=== PATIENT | male | born 1995 | race American Indian/Alaskan Native ===

== ENCOUNTER 2017-10-03 01:51 | Inpatient (IN) | payer MEDICAID, OTHER ==
--- NOTE | 2017-10-03 02:33 | C.PDOC ---
History Of Present Illness 21 year old male is brought to the ED via EMS for evaluation of possible SI. Patient reports he was out all day long and was nit jailene to call his parents because his phone had no battery. Patient states he was watching Star Wars in the movies theater, patient reports his family think he is going to commit suicide so they called an ambulance for him. Patient is willing to spend the night over for observation. Time Seen by Provider: 10/03/17 02:29 Chief Complaint (Nursing): Psychiatric Evaluation History Per: Patient, EMS History/Exam Limitations: no limitations Onset/Duration Of Symptoms: Hrs Current Symptoms Are (Timing): Still Present Suicide/Self Injury Attempted (Context): None Modifying Factor(s): None Severity: None Associated Symptoms: denies: Depression, Suicidal Thoughts, Suicidal Plan Recent travel outside of the [place]: No Additional History Per: Patient Past Medical History Reviewed: Historical Data, Nursing Documentation, Vital Signs Vital Signs: Last Vital Signs Temp 98.4 F 10/03/17 06:33 Pulse 89 10/03/17 15:39 Resp 20 10/03/17 06:33 BP 105/76 10/03/17 15:39 Pulse Ox 100 10/03/17 06:33 - Medical History PMH: Depression Surgical History: No Surg Hx Family History: States: Unknown Family Hx - Social History Hx Alcohol Use: No Hx Substance Use: No Review Of Systems Constitutional: Negative for: Fever, Chills ENT: Negative for: Ear Pain Cardiovascular: Negative for: Chest Pain, Palpitations Respiratory: Negative for: Cough, Shortness of Breath, SOB with Excertion, Pleuritic Pain Gastrointestinal: Negative for: Nausea, Vomiting, Abdominal Pain Genitourinary: Negative for: Dysuria, Hematuria Musculoskeletal: Negative for: Neck Pain Skin: Negative for: Rash Neurological: Negative for: Weakness, Numbness Psych: Negative for: Depression, Suicidal ideation Physical Exam - Physical Exam Appears: Non-toxic, No Acute Distress Skin: Normal Color, Warm, Dry Head: Atraumatic, Normacephalic Eye(s): bilateral: Normal Inspection Ear(s): Bilateral: Normal Nose: No Discharge, No Deformity Oral Mucosa: Moist Neck: Normal ROM, Supple Chest: Symmetrical Cardiovascular: Rhythm Regular, No Murmur Respiratory: Normal Breath Sounds, No Rales, No Rhonchi, No Wheezing Gastrointestinal/Abdominal: Soft, No Tenderness, No Guarding, No Rebound Back: Normal Inspection Extremity: Normal ROM, No Pedal Edema, No Calf Tenderness, No Deformity, No Swelling Neurological/Psych: Oriented x3, Normal Speech, Normal Cognition Gait: Steady ED Course And Treatment - Laboratory Results Result Diagrams: 10/03/17 03:55 10/03/17 03:55 O2 Sat by Pulse Oximetry: 100 (On RA) Pulse Ox Interpretation: Normal Medical Decision Making Medical Decision Making: Plan: * labs * 1:1 obs * UA Patient will be admitted to psych in patient unit. Disposition Counseled Patient/Family Regarding: Diagnosis - Disposition Disposition: HOSPITALIZED Disposition Time: 02:22 Condition: GOOD - Clinical Impression Clinical Impression: Schizophrenia - Scribe Statement The provider has reviewed the documentation as recorded by the Scribe Delon Dowling All medical record entries made by the Ubaldoibe were at my direction and personally dictated by me. I have reviewed the chart and agree that the record accurately reflects my personal performance of the history, physical exam, medical decision making, and the department course for this patient. I have also personally directed, reviewed, and agree with the discharge instructions and disposition.
[2017-10-03 03:52] LABS: SQUAMOUS EPITHIAL < 1 /hpf (0-5); URINE BILIRUBIN NEGATIVE (NEGATIVE); URINE BLOOD NEGATIVE (NEGATIVE); URINE CLARITY Clear (Clear); URINE COLOR Yellow (YELLOW); URINE GLUCOSE (UA) NORMAL (Normal); URINE LEUKOCYTE ESTERASE NEG Leu/uL (Negative); URINE NITRATE NEGATIVE (NEGATIVE); URINE PROTEIN NEGATIVE (NEGATIVE); URINE UROBILINOGEN NORMAL mg/dL (0.2-1.0)
[2017-10-03 03:58] LABS: BASO % 0.7 % (0.0-2.0); EOS # 0.1 K/uL (0.0-0.7); EOS % 1.7 % (0.0-4.0); LYMPH # 1.6 K/uL (1.0-4.3); LYMPH % 28.3 % (20.0-40.0); MEAN CELL VOLUME 87.3 fL (80.0-94.0); MEAN CORPUSCULAR HEMOGLOBIN 30.5 pg (27.0-31.0); MEAN CORPUSCULAR HGB CONC 34.9 g/dL (33.0-37.0); MEAN PLATELET VOLUME 8.2 fL (7.2-11.7); MONO # 0.5 K/uL (0.0-0.8); MONO % 8.8 % (0.0-10.0); NEUT # 3.4 K/uL (1.8-7.0); NEUT % 60.5 % (50.0-75.0); RBC 4.58 Mil/uL (4.40-5.90); RED CELL DISTRIBUTION WIDTH 17.2 % (11.5-14.5); WHITE BLOOD COUNT 5.5 K/uL (4.8-10.8)
[2017-10-03 04:10] LABS: ALBUMIN 4.8 g/dL (3.5-5.0); ALT/SGPT 16 U/L (21-72); AST/SGOT 16 U/L (17-59); BLOOD UREA NITROGEN 9 mg/dL (9-20); CALCIUM 8.6 mg/dl (8.6-10.4); GFR AFRICAN-AMERICAN > 60; GFR NON-AFRICAN AMERICAN > 60
[2017-10-03 04:18] LABS: ALB/GLOB RATIO 1.2 (1.0-2.1)
--- NOTE | 2017-10-03 06:04 | PCM.BM ---
<FlyVerna jacobs - Last Filed: 10/03/17 06:03> Treatment Plan Problems - Problems identified on initial assessmt Suicidal Ideation Date Initiated: 10/03/17 Time Initiated: 05:55 Assessment reference: NA Status: Active Depression Date Initiated: 10/03/17 Time Initiated: 05:55 Assessment reference: NA Status: Active Treatment assets and liabiliti Patient Assests: cooperative, ADL independent, negotiates basic needs Patient Liabilities: relationship conflicts - Milieu Protocol Maintain good personal hygiene: daily Encourage regular showers, daily Remind patient to perform daily oral care, daily Assist patient to perform ADL's Conduct patient checks and document Observation sheet: Q15 minutes Maintain personal safety: every shift Educate patient to report safety concerns to staff, every shift Monitor environment for contraband/sharps Medication safety: Monitor for expected outcome, potential side effects: every shift, Assess barriers to learning: every shift, Assess readiness for medication education: every shift <Shayla Vo - Last Filed: 10/04/17 11:25> Family Contact Family involvement: Family/SO is involved Family contact: Patient declines to allow family contact at present - Goals for Treatment Patient goals for treatment: "I don't know." Discharge/Continuing Care - Education Needs Education Needs: Patient Medication, Patient Coping Skills - Discharge Discharge Criteria: Tolerates medication w/o severe side effects, Free of Suicidal thoughts, Reduction of target symptoms Discharge to:: Home - Treatment Team Participation Discussed with Family/SO: No Was Patient/Family/SO present at Treatment Team Meeting: Yes <Jose G Bernstein - Last Filed: 10/04/17 11:27> - Diagnosis (1) Bipolar disorder, curr episode mixed, severe, with psychotic features Status: Acute Interventions: 10/04/17 11:27 * Assess/adjust medications daily and /or as needed * See patient on an individual basis 7x/week to assess level of manic behaviors and stability * Discuss risks, benefits, side effects and alternatives of medications *
[2017-10-03 06:11] LABS: BENZODIAZEPINES, UR NEGATIVE (NEGATIVE); OPIATES, UR NEGATIVE (NEGATIVE); PHENCYCLIDINE, UR NEGATIVE (NEGATIVE)
[2017-10-03 06:56] LABS: BARBITURATES, UR NEGATIVE (NEGATIVE)
--- NOTE | 2017-10-03 12:07 | PCM.PSYCH ---
Initial Psychiatric Evaluation - Initial Psychiatric Evaluation Type of Admission: Voluntary Chief Complaint (in patient's own words): I was suicidal History of Present Illness and Precipitating Events: Patient is a 21 year old AA male who was BIB [facility] for possible suicide threat. He spoke with his brother over the phone and told him that he wanted to kill himself. Following the conversation the brother called the spool fixer and notified the patient's grandmother. Patient states that he truly did not mean it "and killing himself would be stupid." However in the ED he reported his thoughts of suicide as something that is "usually present in my mind"; Approximately 2yrs ago, Pt had idx to either "stab" himself in the head, "jump from a high building", or "walk around a dark ally, waiting for someone to kill me"; Pt, however, denied having any recent suicide plans/intent; Pt described himself as being "depressed", "empty", "just like a walking shell", and as a "nihilist"; Pt stated: "I worry too much about the future;" The future kind of scares me;" I just don't think life's that important;" I just feel empty inside; " Pt also reports a hx of secluding himself from others; Pt stated: "I've been isolating myself since I was a kid;" It's soothing to me;" I don't like people; " I think people are annoying". He stated that his anxiety causes his mind to go blank "like static on a TV screen" causing him to have difficulty concentrating or focusing. Patient reports at times feelings of hopelessness and helplessness. He states that he feels empty inside, that he has no drive or motivation, and as if no one is listening to him. Patient denies auditory/visual hallucination, history of sexual/mental/physical abuse, palpitations, paranoia. He admits to a passion for video games. It is not uncommon, he states, to "pull all nighters" or not sleep for 4 days because he is playing video games. Patient moved out of his parents home and lives with his grandmother because she was closer to his college. 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 He says ever since then he is extremely stressed when any of his family members mention college to him. He states that he suffers from severe anxiety since dropping out worrying about the future, his career, and how to make money quickly. He describes his anxiety like a feeling of claustrophobia, that he is trapped and wants to escape. PMH: Denies Allergies: NKDA Social: Lives with grandmother. Has communication with brother, mother, and father. Denies alcohol, drugs, tobacco. Current Medications: Active Medications Generic Name Dose Route Start Last Admin Trade Name Freq PRN Reason Stop Dose Admin Pneumococcal Polyvalent Vaccine 0.5 ml 10/06/17 10:00 Pneumovax 23 Vaccine IM 10/06/17 10:01 .ONCE ONE Past Psychiatric History - Past Psychiatric History Previous Treatment History: None Pertinent Medical Hx (Current Medical&Sleep Prob, Allergies): Allergies Allergy/AdvReac Type Severity Reaction Status Date / Time No Known Allergies Allergy Verified 10/03/17 02:11 No Known Home Med 10/03/17 Review of Systems - Review of Systems All systems: reviewed and no additional remarkable complaints except - Psychiatric Psychiatric: Abnormal Sleep Pattern, Anxiety, Depression, Difficulty Concentrating, Hopelessness, Suicidal Ideation Mental Status Examination - Personal Presentation Personal Presentation: Looks stated age - Affect Affect: Constricted, Depressed - Motor Activity Motor Activity: Calm - Reliability in Providing Information Reliability in Providing Information: Poor, due to altered mood - Speech Speech: Tangential - Mood Mood: Depressed, Anxious - Formal Thought Process Formal Thought Process: No Impairment - Obsessions/Compulsions Obsessions: No Compulsions: No - Cognitive Functions Orientation: Person, Place, Situation, Time Sensorium: Alert Attention/Concentration: Attentive Abstract Thinking: [place] Estimate of Intelligence: Below average Judgement: Imparied, as evidence by: Poor judgement, Imparied, as evidence by: Lack of insight into illness - Risk Risk: Suicidal, Diminished functioning - Strength & Assets Inventory Strength & Assets Inventory: Family support DSM 5 DX - DSM 5 DSM 5 Diagnosis: Bipolar disorder mixed severe without psychotic features - Recommended/Plan of Treatment Treatment Recommendations and Plan of Treatment: Bipolar disorder mixed severe without psychotic features CBT Psychoeducation Supportive therapy, group therapy, individual therapy Lithouj 300 mg po tid Trazodone 50 mg by mouth daily at bedtime - Smoking Cessation Smoking Cessation Initiated: No
[2017-10-04 06:14] VITALS: TEMP 97.8
--- NOTE | 2017-10-04 11:26 | PCM.PYCHPN ---
Psychiatric Progress Note - Psychiatric Progress Note Patient seen today, length of contact: 15 min Patient Chief Complaint: I am feeling little better.' Problems Identified/Issues Discussed: Patient seen and evaluated, chart reviewed and discussed with the nurse. Patient appears more organized and less internally preoccupied. Patient still appears paranoid and delusional. Patient reports improvement in his mood and irritability and reports some improvement in the feelings of hopelessness and helplessness. Patient remained isolated, confined and withdrawn. Patient is compliant with medications and denies any side effects. Symptoms are improving but need more time to stabilize. Support and psychoeducation given. Medication Change: Yes (start risperdal) Medical Record Reviewed: Yes Mental Status Examination - Cognitive Function Orientation: Person, Place, Situation, Time Memory: Intact Attention: WNL Concentration: Poor Association: Loose Fund of Knowledge: WNL - Mood Mood: Depressed, Anxious - Affect Affect: Constricted, Depressed - Speech Speech: Appropriate - Formal Thought Process Formal Thought Process: Paranoia, Loosening of associations, Flight of ideas - Suicidal Ideation Suicidal Ideation: No - Homicidal Ideation Homicidal Ideation: No Goal/Treatment Plan - Goal/Treatment Plan Need for Continued Stay: Remain at risks for inpatient hospitalization, Severe functional impairment Progress Toward Problem(s) and Goals/Treatment Plan: Bipolar disorder mixed severe without psychotic features CBT Psychoeducation Supportive therapy, group therapy, individual therapy Lithouj 300 mg po tid Trazodone 50 mg by mouth daily at bedtime Risprerdal 1 mg PO BID Cogentin 1 mg PO BID
[2017-10-05 06:08] VITALS: O2SAT 98
[2017-10-05 13:49] VITALS: RESP 19
--- NOTE | 2017-10-05 15:46 | PCM.PYCHDC ---
Mental Status Examination - Mental Status Examination Orientation: Person, Place, Situation, Time Discharge Summary - Discharge Note Consultations:: List each consultation separately and include: 1. Reason for request. 2. Findings. 3. Follow-up Summary of Hospital Course include:: 1. Description of specific treatment plan utilized for patients during their course of treatmen. 2. Summarize the time- course for resolution of acute symptoms and/or regressed behaviors. 3. Describe issues identified and worked on during hospitalization. 4. Describe medication utilized. 5. Describe medical problems identified and treated. 6. Reassessment of suicide risk - Final Diagnosis (DSM 5) Condition upon Discharge: GOOD Disposition: AGAINST MEDICAL ADVICE
[2017-10-05 15:50] VITALS: BP 142/77; PULSE 110
--- NOTE | 2017-10-05 16:09 | PCM.PYCHDC ---
Mental Status Examination - Mental Status Examination Orientation: Person, Place, Situation, Time Memory: Intact Mood: Neutral Affect: Constricted Speech: Appropriate, Soft Attention: WNL Concentration: WNL Association: WNL Fund of Knowledge: WNL Formal Thought Process: No Impairment Description of patient's judgement and insight: insight was good and judgment was fair Psychotic Thoughts and Behaviors: denied Suicidal Ideation: No Current Homicidal Ideation?: No Plan: denied Discharge Summary - Discharge Note Reason for Hospitalization: Patient is a 21 year old AA male who was BIB [facility] for possible suicide threat. He spoke with his brother over the phone and told him that he wanted to kill himself. Following the conversation the brother called the tanker serviceman and notified the patient's grandmother. Patient states that he truly did not mean it "and killing himself would be stupid." However in the ED he reported his thoughts of suicide as something that is "usually present in my mind"; Approximately 2yrs ago, Pt had idx to either "stab" himself in the head, "jump from a high building", or "walk around a dark ally, waiting for someone to kill me"; Pt, however, denied having any recent suicide plans/intent; Pt described himself as being "depressed", "empty", "just like a walking shell", and as a "nihilist"; Pt stated: "I worry too much about the future;" The future kind of scares me;" I just don't think life's that important;" I just feel empty inside; " Pt also reports a hx of secluding himself from others; Pt stated: "I've been isolating myself since I was a kid;" It's soothing to me;" I don't like people; " I think people are annoying". He stated that his anxiety causes his mind to go blank "like static on a TV screen" causing him to have difficulty concentrating or focusing. Patient reports at times feelings of hopelessness and helplessness. He states that he feels empty inside, that he has no drive or motivation, and as if no one is listening to him. Patient denies auditory/visual hallucination, history of sexual/mental/physical abuse, palpitations, paranoia. He admits to a passion for video games. It is not uncommon, he states, to "pull all nighters" or not sleep for 4 days because he is playing video games. Patient moved out of his parents home and lives with his grandmother because she was closer to his college. He was attending [employer] as a [place] major but dropped out. 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 He says ever since then he is extremely stressed when any of his family members mention college to him. He states that he suffers from severe anxiety since dropping out worrying about the future, his career, and how to make money quickly. He describes his anxiety like a feeling of claustrophobia, that he is trapped and wants to escape. PMH: Denies Allergies: NKDA Social: Lives with grandmother. Has communication with brother, mother, and father. Denies alcohol, drugs, tobacco. Consultations:: List each consultation separately and include: 1. Reason for request. 2. Findings. 3. Follow-up Summary of Hospital Course include:: 1. Description of specific treatment plan utilized for patients during their course of treatmen. 2. Summarize the time- course for resolution of acute symptoms and/or regressed behaviors. 3. Describe issues identified and worked on during hospitalization. 4. Describe medication utilized. 5. Describe medical problems identified and treated. 6. Reassessment of suicide risk Summary of Hospital Course: The pt was admitted and started on treatment with psychotherapy, support, psychoeducation and medications. MT and CBT techniques were used. The pt was partially compliant with his treatment. The pt attended some groups and activities, as well as milieu therapy. All the risks and benefits of medications were discussed and the patient understood and agreed. The pt improved with the treatment. patient signed a 48-hour sign out noticed and submitted on after coming to the unit. Patient had had no behavioral issues in the unit. Patient denied any suicidal or homicidal ideation, intent or plan. Patient stated that he had never attempted suicide in the past. He reported that he cannot hurt himself because he is scared and has a phobia of pain. Patient denied any past suicidal gestures in the past. Patient stated that his family exaggerated the situation. This M.D. contacted patient's father name Herb [phone]. patient's father reported that the child never attempted suicide in the past. Patient's father stated that he has no safety concerns regarding his son. There is M.D. also speak with the aunt Donis [phone] with the patient permission. Aunt reported that the patient is never attempted suicide, and the family was over reacted and exaggerated the story. The aunt stated that the patient never verbalized suicidal or homicidal ideation intent or plan in front of her. She stated he never attempted suicide in the past.. He has no safety concerns regarding the child. This M.Collette. also contacted the grandmother, but unable to talk with grandmother. Pt appreciate the treatment and care which was provided to him. patient stated that he does not think that he needed any medications. No medication prescription was given to the patient. He stated that he wanted and interested in individual therapy and want to continue after that discharge referral and contact number of [facility] and [facility] was provided to the patient. At the time of d/c pt denied any depressive symptoms, manic symptoms. He denied any SI, HI, intent or plan. Pt denied any perceptual disturbances. He had behavioral issues. Psychoeducation was provided to the pt to be compliant with the medication, treatment plan and f/u plan after the discharge. After care discussed with the patient. patient was discharged to the aunt. - Final Diagnosis (DSM 5) Condition upon Discharge: GOOD DSM 5: BiPOLAR DISORDER CURRENT EPISODE MIXED Disposition: HOME/ ROUTINE Follow-up Treatment Plan: Follow after care plan as discussed. Contact information for [facility] and Doris provided to start therapy. Pt will make an appointment by himself. No medication was given as pt does not believe that he had any mental illness. Use relapse prevention copying skills Return to ER or call 911 if suicidal, homicidal or symptoms relapse. Stay away from stress, alcohol and drugs. See primary doctor once a year. Time Spend 25 minutes - Smoking Cessation Smoking Cessation Medication prescribed: Yes - Antipsychotic Medications Pt discharged on 2 or more routine antipsychotic medications: No
[2017-10-06] MEDS ORDERED: Influenza Vaccine 60 mcg/0.5 mL SYR (4YR UP) IM ONE (10:00)
[2017-10-06] MEDS ORDERED: Pneumococcal 23-Valent Vaccine IM ONE (10:00)
== END 2017-10-05 17:15 | disposition home or self-care (01) | DRG 430 ==
LOC: C.ER 01:51 → C.5E 03:39 → UNDODISIN 10-05 17:15
PROC: GZ56ZZZ Individual Psychotherapy, Supportive (ICD-10-PCS; principal; 2017-10-03)
DX: F31.63 Bipolar disorder, current episode mixed, severe, without psychotic features (principal); R45.851 Suicidal ideations; F40.240 Claustrophobia; F91.9 Conduct disorder, unspecified